=== PATIENT | female | born 1970 | race Caucasian/White ===

== ENCOUNTER → 2020-04-13 | Outpatient (CLI) | payer OTHER ==
--- NOTE | 2020-04-13 12:10 | REP ---
LEFT 3RD DIGIT, FOUR VIEWS: Four views left 3rd digit performed and demonstrate no fracture, dislocation, or intrinsic bone disease. IMPRESSION: No fracture or dislocation. Electronically Signed by Kartik Reed MD 04/16/2020 09:28 A
== END ==
LOC: M LRY 11:05
PROVIDERS: ATTEND Physician Assistant
DX: S69.92XA Unspecified injury of left wrist, hand and finger(s), initial encounter (principal); X58.XXXA Exposure to other specified factors, initial encounter; Y92.89 Other specified places as the place of occurrence of the external cause

== ENCOUNTER → 2020-04-13 | Outpatient (CLI) | payer OTHER ==
--- NOTE | 2020-04-13 12:23 | REP ---
REASON: Atraumatic bilateral wrist pain. FINDINGS: No acute fracture or destructive osseous lesion bilaterally. Electronically Signed by Joshua Pollard DO 04/13/2020 04:59 P
== END ==
LOC: M LRY 11:11
PROVIDERS: ATTEND Internal Medicine
DX: M25.531 Pain in right wrist (principal); M25.532 Pain in left wrist; S69.92XA Unspecified injury of left wrist, hand and finger(s), initial encounter; X58.XXXA Exposure to other specified factors, initial encounter; Y92.89 Other specified places as the place of occurrence of the external cause

== ENCOUNTER → 2020-11-06 | Outpatient (CLI) | payer OTHER ==
--- NOTE | 2020-11-13 13:19 | REP ---
INDICATION: ALFONSO DIAG MAMMO/ALFONSO BREAST LUMPS LOWER QUAD; ALFONSO BREAST LUMPS/LOWER QUAD. COMPARISON: Mammography comparison mammography 05 March 2020, 11 August 2019, and 17 May 2018. TECHNIQUE: Bilateral CC and MLO) view(s) were taken. Magnified focal spot-compression images are obtained bilaterally in the areas of the palpable lumps. Targeted bilateral sonography is carried out. FINDINGS: Breast parenchyma is heterogeneously extremely dense in a pattern which may inhibit the sensitivity mammography. There are multiple bilateral well-circumscribed breast masses, all of which have regressed in size from the prior mammography March 05, 2020 and May 17, 2018. Dense breast parenchymal pattern may inhibit the sensitivity mammography. No architectural distortion, new mass lesion, or micro calcific grouping is observed on either side. No dominant density is seen at the site of the either palpable lump. The Volpara volumetric breast density pattern is D. Targeted bilateral breast sonography: Heterogeneous fibroglandular background echotexture is observed bilaterally. Scanning in the area of the palpable abnormality in the right breast at approximately 12 o'clock demonstrates 3 identifiable cysts. These measure 1.0, 1.0, and 0.4 cm in greatest diameter respectively. They are at the 11 30, and 12 o'clock position. No suspicious abnormality is noted on the right. On the left scanning in the area the 5 o'clock position where the patient describes a palpable lump demonstrates several small cysts. The largest of these measures 0.9, 0.8, 0.7, and 0.6 cm in greatest diameter respectively. No sonographically suspicious finding.. IMPRESSION: BIRADS/ACR category 2 benign bilateral mammographic and sonographic findings. Multiple simple cysts identified by ultrasound in each breast. These have regressed in size.. This patient's Tyrer-Cuzick lifetime breast cancer risk assessment score is 9.6%. This mammogram was interpreted with the aid of an FDA-approved computer-aided detection system. The patient states she had a clinical breast exam in over a year ago. The patient letter being requested is M2 dense. RECOMMENDATION: Repeat screening mammography recommended 1 year (for women over 40). <Electronically signed by Rakesh Moncada > 11/13/20 [id number]
== END ==
LOC: M WHC 13:46
PROVIDERS: ATTEND Family Medicine
DX: N60.01 Solitary cyst of right breast (principal); N60.02 Solitary cyst of left breast
CPT/HCPCS: 76642; 77066; G0279

== ENCOUNTER → 2021-02-26 | Outpatient (CLI) | payer OTHER ==
[~2021-02-26] MED LIST: PROHANCE 279.3MG/ML 15ML VIAL As Ordered ONE
--- NOTE | 2021-02-26 15:13 | REP ---
INDICATION: BREAST CYST. COMPARISON: Mammogram 11/06/2020. TECHNIQUE: Three Roseline MRI imaging was performed with a dedicated breast coil. Axial, coronal, and sagittal T1 and T2 weighted scans were obtained with and without fat saturation in the usual fashion. The study includes dynamically acquired post gadolinium-enhanced imaging with image subtraction. Maximum intensity projection and multi planar reformation imaging is included as well. This study is interpreted with the aid of Real Time Content[employer], an FDA approved computer aided detection (CAD) software program, on a dedicated breast MRI workstation. The gadolinium enhancement dose is 11 mL of intravenous ProHance. FINDINGS: There is extreme pattern of parenchymal tissue bilaterally. Multiple cystic structures are seen bilaterally which do not show suspicious enhancement. The largest is in the lower outer posterior right breast, measuring approximately 2.6 cm in maximum diameter. There is no significant axillary adenopathy bilaterally. There is moderate to extreme background parenchymal enhancement bilaterally which somewhat limits the exam. I do not see a suspicious enhancing mass or morphologic abnormality bilaterally. IMPRESSION: BI-RADS category 2 benign bilateral breast MRI. No suspicious enhancing mass or morphologic abnormality. Multiple bilateral cysts are present along with moderate to extreme background parenchymal enhancement. <Electronically signed by Kartik Reed > 02/26/21 [id number]
== END ==
LOC: M RAD 12:45
PROVIDERS: ATTEND Surgery
DX: N60.11 Diffuse cystic mastopathy of right breast (principal); N60.12 Diffuse cystic mastopathy of left breast
CPT/HCPCS: A9576; C8908

== ENCOUNTER → 2021-12-02 | Outpatient (CLI) | payer OTHER | LOC: M WHC 12:28 | PROVIDERS: ATTEND Family Medicine | DX: Z12.31 Encounter for screening mammogram for malignant neoplasm of breast (principal) ==

== ENCOUNTER 2022-03-16 15:08 | Emergency (ER) | payer OTHER ==
[~2022-03-16] VITALS: Ht 162.6 cm; Wt 60.5 kg
[2022-03-16 16:26] LABS: BASO % 0.5 % (0.0-1.0); EOS # 0.1 10^3/uL (0.0-0.5); EOS % 1.8 % (0.0-3.0); HEMATOCRIT 43.2 % (36.0-47.0); HEMOGLOBIN 14.3 g/dl (12.0-15.5); MEAN CORPUSCULAR HEMOGLOBIN 30.2 pg (27.0-33.0); MEAN CORPUSCULAR HGB CONC 33.1 g/dl (32.0-36.5); MEAN CORPUSCULAR VOLUME 91.1 fl (80.0-96.0); MONO # 0.3 10^3/uL (0.0-0.8); MONO % 7.8 % (2.0-8.0); NEUTROPHILS # 2.5 10^3/uL (1.5-8.5); NEUTROPHILS % 63.6 % (36.0-66.0); PLATELET COUNT, AUTOMATED 212 10^3/uL (150-450); RED BLOOD COUNT 4.74 10^6/uL (4.00-5.40)
[2022-03-16 16:56] LABS: BLOOD UREA NITROGEN 11 MG/DL (7-18); CALCIUM LEVEL 9.2 MG/DL (8.5-10.1); CARBON DIOXIDE LEVEL 23 MEQ/L (21-32); CHLORIDE LEVEL 109 MEQ/L (98-107); CREATININE FOR GFR 0.63 MG/DL (0.55-1.30); GLOMERULAR FILTRATION RATE > 60.0 (>58); GLUCOSE, FASTING 99 MG/DL (70-100); POTASSIUM SERUM 4.3 MEQ/L (3.5-5.1); SODIUM LEVEL 142 MEQ/L (136-145)
[2022-03-16 17:26] LABS: HCG, SERUM QUALITATIVE NEGATIVE (NEGATIVE)
[2022-03-16] MEDS ORDERED: ISOVUE-370 76% 100ML VIAL As Ordered ONE (17:40)
[2022-03-16] MEDS ORDERED: ACETAMINOPHEN TAB 650MG DOSE (2X325MG) PO ONE (19:20)
[2022-03-16 19:40] VITALS: BP 136/84; O2SAT 98
== END 2022-03-16 19:47 | disposition home or self-care (01) ==
LOC: M ED 15:08
DX: M54.89 Other dorsalgia (principal); Z86.16 Personal history of COVID-19; M41.9 Scoliosis, unspecified; Z86.711 Personal history of pulmonary embolism; Z88.8 Allergy status to other drugs, medicaments and biological substances
CPT/HCPCS: 71275; 80048; 84484; 84703; 85025; 93005; 93041; 94760; 99285; Q9967

== ENCOUNTER → 2022-03-27 | Outpatient (CLI) | payer OTHER | LOC: M RAD 12:37 | PROVIDERS: ATTEND Surgery | DX: I83.93 Asymptomatic varicose veins of bilateral lower extremities (principal) ==

== ENCOUNTER → 2022-05-22 | Outpatient (CLI) | payer OTHER | LOC: M RAD 14:07 | PROVIDERS: ATTEND Family Medicine | DX: D25.9 Leiomyoma of uterus, unspecified (principal) ==

== ENCOUNTER → 2022-10-08 | Outpatient (CLI) | payer OTHER | LOC: M WHC 13:30 | PROVIDERS: ATTEND Surgery | DX: N63.24 Unspecified lump in the left breast, lower inner quadrant (principal); N64.4 Mastodynia; N63.11 Unspecified lump in the right breast, upper outer quadrant; N60.01 Solitary cyst of right breast; N60.02 Solitary cyst of left breast | CPT/HCPCS: 76642; 77066; G0279 ==

== ENCOUNTER → 2023-09-02 | Outpatient (CLI) | payer OTHER ==
[~2023-09-02] MED LIST changes: +HYDR25OIN TOP; -PROHANCE 279.3MG/ML 15ML VIAL As Ordered ONE; +ZYRTTAB8 PO
== END ==
LOC: M WHC 13:46
PROVIDERS: ATTEND Obstetrics & Gynecology
DX: D25.9 Leiomyoma of uterus, unspecified (principal)

== ENCOUNTER → 2023-10-20 | Outpatient (CLI) | payer OTHER | LOC: M WHC 09:42 | PROVIDERS: ATTEND Nurse Practitioner Women's Health | DX: N60.02 Solitary cyst of left breast (principal); R92.342 Mammographic extreme density, left breast | CPT/HCPCS: 77066; G0279 ==

== ENCOUNTER → 2024-02-01 | Outpatient (CLI) | payer OTHER | LOC: M PLAIMG 12:36 | PROVIDERS: ATTEND Nurse Practitioner Family | DX: M25.539 Pain in unspecified wrist (principal); M79.641 Pain in right hand; M79.642 Pain in left hand; M19.041 Primary osteoarthritis, right hand ==

== ENCOUNTER → 2024-02-03 | Outpatient (CLI) | payer OTHER | LOC: M PLAIMG 12:32 | PROVIDERS: ATTEND Nurse Practitioner Family | DX: M25.539 Pain in unspecified wrist (principal); M79.642 Pain in left hand; M79.641 Pain in right hand; M19.042 Primary osteoarthritis, left hand ==